=== PATIENT | female | born 1995 ===

== ENCOUNTER 2020-04-19 12:48 | Emergency (ER) | payer OTHER ==
[~2020-04-19] VITALS: Ht 152.4 cm; Wt 49.4 kg
[~2020-04-19 12:48] MED LIST: PRENATAL TABLE1 EACH PO
== END 2020-04-19 18:32 | disposition home or self-care (01) ==
LOC: ER 12:48
DX: O26.851 Spotting complicating pregnancy, first trimester (principal); Z3A.01 Less than 8 weeks gestation of pregnancy